=== PATIENT | female | born 1985 | race Native Hawaiian/Other Pacific Islander ===

== ENCOUNTER 2017-07-03 22:03 | Emergency (ER) | payer BC ==
[~2017-07-03] VITALS: Ht 157.5 cm; Wt 68.0 kg
[2017-07-03 22:40] LABS: PLATELET COUNT 311 K/uL (152-353)
== END 2017-07-03 23:12 | disposition left against medical advice (07) ==
LOC: ED 22:03
DX: R59.1 Generalized enlarged lymph nodes (principal); B37.3 Candidiasis of vulva and vagina
CPT/HCPCS: 85027; 99282